=== PATIENT | male | born 1980 | race Caucasian/White ===

== ENCOUNTER → 2017-02-08 | Emergency (ER) | payer SELFPAY ==
[~2017-02-08] VITALS: Ht 177.8 cm; Wt 77.1 kg
[~2017-02-08] MED LIST: AMOX500C2 PO; AMOXICILLIN 500 MG (POLYMOX) CAP PO STA; HYDR-757 PO; HYDROcodone/APAP 5 MG/325 MG (LORTAB) TAB PO ONE; LIDOCAINE 1% INJ 20 ML (XYLOCAINE) VIAL ONE; SULF1TAB35 PO; TRIM/SULFAMETH 160/800 (SEPTRA DS) TAB PO ONE
--- NOTE | 2017-02-08 16:21 | ED Integumentary General ---
General Chief Complaint: Skin/Wound Problems Stated Complaint: L SIDE CHEST SWELLING/DISCOLORATION Source: patient Exam Limitations: no limitations History of Present Illness Time seen by provider: 16:18 Initial Comments To ER with pain around the left nipple for the past few days. He states that he was struck in this area with a football a few days ago but he also has a history of MRSA infections. Timing/Duration: just prior to arrival Severity: moderate Location: torso Possible Cause: no cause identified Allergies and Home Medications Allergies Coded Allergies: No Known Drug Allergies (Unverified , 02/08/17) Home Medications Amoxicillin 500 Mg Capsule, 500 MG PO TID, #21 Prescribed by: TOMAS HOLLIS on 02/08/17 1621 Hydrocodone/Acetaminophen 1 Each Tablet, 1 EACH PO Q4H PRN for PAIN-MODERATE, # 10 Prescribed by: TOMAS HOLLIS on 02/08/17 1621 Sulfamethoxazole/Trimethoprim 1 Each Tablet, 1 EACH PO BID, #14 Do not fill unless amoxicillin and Bactrim are both filled as well Prescribed by: TOMAS HOLLIS on 02/08/17 1621 Constitutional: see HPI EENTM: see HPI Respiratory: no symptoms reported Cardiovascular: no symptoms reported Genitourinary: no symptoms reported Musculoskeletal: no symptoms reported Skin: see HPI Psychiatric/Neurological: No Symptoms Reported Endocrine: No Symptoms Reported Past [id number] Hx Patient Social History Recent Foreign Travel: No Contact w/Someone Who Travel: No Physical Exam Vital Signs Vital Sign - Last 12Hours 02/08/17 16:10 Temp 97.2 Pulse 92 Resp 18 B/P (MAP) 120/87 Pulse Ox 95 O2 Delivery Room Air Capillary Refill : General Appearance: WD/WN, no apparent distress HEENT: PERRL/EOMI, normal ENT inspection Neck: non-tender, full range of motion Respiratory: no respiratory distress, no accessory muscle use Neurologic/Psychiatric: alert, normal mood/affect, oriented x 3 Skin: normal color, warm/dry Skin Problem Location: torso Skin Problem Character: other (erythema around the left nipple/areola with some induration and a small pustule noted.) I&D : Blade Size: 11 Progress Area was anesthetized with 1 percent lidocaine without epinephrine. Stab incision was then made with 11 blade scalpel. Moderate amount of purulent material was expressed. Culture collected and sent to lab. Progress/Results/Core Measures Results/Orders My Orders Orders - TOMAS HOLLIS APRN Wound Culture (02/08/17 16:15) Sulfamethoxazole/Trimet Ds Tab (Bactrim (02/08/17 16:30) Amoxicillin Capsule (Polymox Capsule) (02/08/17 16:17) Hydrocodone/Apap 5/325 Tablet (Lortab 5 (02/08/17 16:30) Vital Signs/I&O Vital Sign - Last 12Hours 02/08/17 16:10 Temp 97.2 Pulse 92 Resp 18 B/P (MAP) 120/87 Pulse Ox 95 O2 Delivery Room Air Departure Impression Impression: Primary Impression: Abscess Disposition: 01 HOME, SELF-CARE Condition: Stable Departure-Patient Inst. Decision time for Depature: 16:19 Referrals: NO,LOCAL PHYSICIAN (PCP/Family) Primary Care Physician Patient Instructions: Abscess Incision and Drainage (DC) Add. Discharge Instructions: Warm compresses to this area 2. Antibiotics as directed 3. Return to ER for any worsening such as fevers or worsening redness. All discharge instructions reviewed with patient and/or family. Voiced understanding. Scripts Hydrocodone/Acetaminophen (Coleman 5-325 Tablet) 1 Each Tablet 1 EACH PO Q4H Y for PAIN-MODERATE, #10 TAB Prov: TOMAS HOLLIS APRN 02/08/17 Sulfamethoxazole/Trimethoprim (Bactrim Ds Tablet) 1 Each Tablet 1 EACH PO BID, #14 TAB Do not fill unless amoxicillin and Bactrim are both filled as well Prov: TOMAS HOLLIS APRN 02/08/17 Amoxicillin (Amoxicillin) 500 Mg Capsule 500 MG PO TID, #21 CAP Prov: TOMAS HOLLIS APRN 02/08/17 TOMAS HOLLIS APRN Feb 08, 2017 16:21
[2017-02-08 16:50] VITALS: BP 120/87
== END | disposition home or self-care (01) ==
LOC: ER 16:05
DX: N61.1 Abscess of the breast and nipple (principal); Z86.14 Personal history of Methicillin resistant Staphylococcus aureus infection
CPT/HCPCS: 10060; 87070; 87077; 87186; 87205